=== PATIENT | male | born 1945 | race Caucasian/White ===

== ENCOUNTER → 2017-01-06 | Outpatient (CLI) | payer MEDICARE ==
[~2017-01-06] MED LIST: ATEN-36 PO; CALC1TAB40 PO; FISH1CAP29 PO; [UNRECOGNIZED DRUG - CODE] PO; [UNRECOGNIZED DRUG - CODE] PO
[2017-01-06 17:35] LABS: HCT - HEMATOCRIT 40.3 % (41-53); HGB - HEMOGLOBIN 13.4 GM/DL (13.5-17.5); MEAN CORPUSCULAR HGB 28.2 UUG (26-34); MEAN CORPUSCULAR HGB CONC(MCHC 33.3 GM/DL (31-37); MEAN CORPUSCULAR VOLUME 84.8 UM3 (80-100); RED BLOOD COUNT 4.75 M/MM3 (4.50-5.90); WBC - WHITE BLOOD COUNT 7.3 T/MM3 (4.5-11.0)
[2017-01-06 17:45] LABS: EOSINOPHILS # (MANUAL) 0.4 T/MM3 (0-0.5); MONOCYTES # (MANUAL) 0.9 T/MM3 (0-0.8); TOTAL CELLS COUNTED 100 %
== END ==
LOC: LAB 17:14
PROVIDERS: ATTEND Internal Medicine Hematology & Oncology
DX: D69.6 Thrombocytopenia, unspecified (principal)
CPT/HCPCS: 36415; 85007; 85027